=== PATIENT | male | born 1990 | race Caucasian/White ===

== ENCOUNTER 2019-01-12 21:09 | Emergency (ER) | payer OTHER ==
[~2019-01-12] VITALS: Ht 177.8 cm; Wt 63.5 kg
[2019-01-12 22:06] VITALS: BP 145/91
== END 2019-01-13 00:17 | disposition home or self-care (01) ==
LOC: ER 21:15
DX: M25.511 Pain in right shoulder (principal); W01.0XXA Fall on same level from slipping, tripping and stumbling without subsequent striking against object, initial encounter; Y93.01 Activity, walking, marching and hiking; Y92.89 Other specified places as the place of occurrence of the external cause; Y99.8 Other external cause status
CPT/HCPCS: 73030-TC